=== PATIENT | male | born 1995 | race Two or more races ===

== ENCOUNTER 2016-09-12 06:09 | Emergency (ER) | payer OTHER ==
[2016-09-12 07:02] VITALS: BP 116/77; PULSE 71; TEMP 97.4; BMI 22.4
[2016-09-12] MEDS ORDERED: ACETAMINOPHEN 325 MG TABLET (FP) PO ONE (07:41)
--- NOTE | 2016-09-12 07:46 | PDOC ---
History of Present Illness - General Chief Complaint: Cold Symptoms Stated Complaint: COLD SYMPTOMS, HEADACHE Time Seen by Provider: 09/12/16 07:07 History Source: Patient Exam Limitations: No Limitations - History of Present Illness Initial Comments: 09/12/16 07:41 Patient is a 20 year old male with no past medical history who presents to ED for headache & congestion since Monday. Patient states he developed a runny nose accompanied by a mild-moderate diffuse frontal headache. Since then he has become congested and developed some mild pain while swallowing. He denies cough , fever, chills, nausea, vomiting, diarrhea, constipation. Denies chest pain, shortness of breath or abdominal pain. Modified CENTOR score of 2. Past History - Travel Traveled outside of the country in the last 30 days: No Close contact w/someone who was outside of country & ill: No - Past Medical History Allergies/Adverse Reactions: Allergies Allergy/AdvReac Type Severity Reaction Status Date / Time No Known Allergies Allergy Verified 09/12/16 08:00 Home Medications: Ambulatory Orders NK [No Known Home Medication] 06/05/16 Other medical history: denies - Surgical History Abdominal Surgery: No Appendectomy: No Cardiac Surgery: No Cholecystectomy: No Gastric Stapling: No GI Surgery: No Lung Surgery: No Neurologic Surgery: No Orthopedic Surgery: No - Family Disease History Comment:: 09/12/16 07:44 denies - Immunization History Immunization Up to Date: Yes - Psycho/Social/Smoking Cessation Hx Anxiety: No Suicidal Ideation: No Smoking Status: No Smoking History: Never smoked Hx Alcohol Use: No Drug/Substance Use Hx: No Substance Use Type: None Review of Systems - Review of Systems Able to Perform ROS?: Yes Is the patient limited French proficient: No Constitutional: No: Chills, Fever, Malaise, Night Sweats HEENTM: Yes: Nose Congestion, Throat Pain, Difficulty Swallowing. No: Blurred Vision, Ear Pain Respiratory: No: Cough, SOB with Exertion, Wheezing Cardiac (ROS): No: Chest Pain, Irregular Heart Rate, Lightheadedness ABD/GI: No: Constipated, Diarrhea, Nausea, Vomiting, Abdominal cramping Integumentary: No: Bruising, Change in Color, Erythema Neurological: Yes: Headache. No: Numbness, Paresthesia, Ataxia All Other Systems: Reviewed and Negative *Physical Exam - Vital Signs Last Vital Signs Temp Pulse Resp BP Pulse Ox 97.4 F L 71 18 116/77 99 09/12/16 06:47 09/12/16 06:47 09/12/16 06:47 09/12/16 06:47 09/12/16 06:47 - Physical Exam General Appearance: Yes: Nourished, Appropriately Dressed HEENT: positive: EOMI, [place], TMs Normal, Other (mildly erythematous pharynx without exudate; mild bilateral anterior cervical lymphadenopathy) Neck: positive: Trachea midline, Normal Thyroid, Supple Respiratory/Chest: positive: Lungs Clear, Normal Breath Sounds Cardiovascular: positive: Regular Rhythm, Regular Rate, S1, S2 Gastrointestinal/Abdominal: positive: Normal Bowel Sounds, Flat, Soft Musculoskeletal: positive: Normal Inspection Extremity: positive: Normal Capillary Refill, Normal Inspection, Normal Range of Motion Integumentary: positive: Normal Color, Dry, Warm Neurologic: 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 Will order rapid strep testing. Tylenol 650mg ordered. 09/12/16 08:44 Rapid strep POSITIVE. Explained antibiotic options with patient and he opts for IM Penicillin G 1.2million units. Shot given & patient instructed to f/u with PCP within 2-3 days for checkup. *DC/Admit/Observation/Transfer Diagnosis at time of Disposition: Acute streptococcal pharyngitis - Discharge Dispostion Disposition: HOME Condition at time of disposition: Improved Admit: No - Patient Instructions Additional Instructions: Followup with your regular primary care doctor within 2-3 days for a checkup. If sore throat worsens, headache becomes severe, or new symptoms arise, return to ED.
--- NOTE | 2016-09-12 07:54 | PDOC ---
Attending Attestation - Resident Resident Name: Shante,Azael - ED Attending Attestation I have performed the following: I have examined & evaluated the patient, The case was reviewed & discussed with the resident, I agree w/resident's findings & plan - HPI HPI: 09/12/16 07:51 20y M no pmhx presents for evaluation of mild frontal headache, nasal congestion and sore throat w/o and fever/chills, cough. On exam the pt is well appearing in no distress with mildly erythemadous posterior pharynx w/o exudates. will obtain rapid strep will give motrin for pain control 09/12/16 08:51 rapid strep postiive will tx with pcn and d/c with pmd fu - Physicial Exam PE: 09/13/16 09:31 see above - Medical Decision Making 09/13/16 09:31 see above
[2016-09-12] MEDS ORDERED: ACETAMINOPHEN 325 MG TABLET (FP) ONE (07:56)
[2016-09-12] MEDS ORDERED: PENICILLIN G BENZATHINE 1,200,000 UNIT/2 ML PFS IM ONE (08:43)
[2016-09-12] MEDS ORDERED: PENICILLIN G BENZATHINE 2,400,000 UNIT/4 ML PFS ONE (08:54)
== END 2016-09-12 09:05 | disposition home or self-care (01) ==
LOC: JER 06:09
DX: J02.0 Streptococcal pharyngitis (principal)
CPT/HCPCS: 87070; 87077; 87430; 99282-25

== ENCOUNTER 2016-10-19 10:21 | Emergency (ER) | payer OTHER ==
[2016-10-19 10:26] VITALS: BP 139/75; PULSE 95; TEMP 97.7; BMI 21.7
[2016-10-19] MEDS ORDERED: IBUPROFEN 600 MG TABLET (FP) PO ONE (10:37)
[2016-10-19] MEDS ORDERED: SILVER SULFADIAZINE 1% TOP CREAM 50 GM JAR TP ONE ×3 (11:21→12:04)
[2016-10-19] MEDS ORDERED: DIPHTH,PERTUSS(ACELL),TET 0.5 ML DISP.SYRIN IM ONE (11:53)
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
[2016-10-19] MEDS ORDERED: OXYCODONE/APAP 5/325MG COMBO TABLET ONE (12:12)
== END 2016-10-19 12:24 | disposition home or self-care (01) ==
LOC: JERFT 10:21
PROC: 2W2FX4Z Dressing of Left Hand using Bandage (ICD-10-PCS; principal; 2016-10-19)
PROC: 3E0234Z Introduction of Serum, Toxoid and Vaccine into Muscle, Percutaneous Approach (ICD-10-PCS; 2016-10-19)
DX: T23.202A Burn of second degree of left hand, unspecified site, initial encounter (principal); Y27.2XXA Contact with hot fluids, undetermined intent, initial encounter; Y93.G3 Activity, cooking and baking; Y92.9 Unspecified place or not applicable
CPT/HCPCS: 90715; 99281-25

== ENCOUNTER 2017-01-04 00:59 | Emergency (ER) | payer OTHER ==
[2017-01-04 01:50] VITALS: BP 127/64; PULSE 92; TEMP 97.1; BMI 22.4
[2017-01-04] MEDS ORDERED: IBUPROFEN 600 MG TABLET (FP) PO ONE ×2 (02:33→02:40)
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
== END 2017-01-04 02:46 | disposition home or self-care (01) ==
LOC: JER 00:59
DX: S13.4XXA Sprain of ligaments of cervical spine, initial encounter (principal); V43.62XA Car passenger injured in collision with other type car in traffic accident, initial encounter; Y92.414 Local residential or business street as the place of occurrence of the external cause; Y93.89 Activity, other specified; Y99.8 Other external cause status
CPT/HCPCS: 99283-25

== ENCOUNTER 2017-02-07 23:39 | Emergency (ER) | payer OTHER ==
[2017-02-08 01:13] VITALS: BP 110/75; PULSE 80; TEMP 98.3; BMI 21.7
--- NOTE | 2017-02-08 02:40 | PDOC ---
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 He states using Robitussin and Motrin with minimal relief. He denies any other complaints at this time. Timing/Duration: reports: other (3 days) Severity: reports: moderate Episode Description: See HPI Possible Cause: Yes: no prior episodes Modifying Factors: worse with: activity, albuterol inhaler, albuterol nebulizer , antibiotics, coughing, lying down, oxygen, rest, other Associated Symptoms: denies: denies symptoms, chest pain/soreness, cough, dizziness, earache, facial pain, fever/chills, headache, lightheadedness, muscle aches, nasal congestion, nasal drainage, shortness of breath, sinus infection, sore throat, wheezing, other Past History - Travel Traveled outside of the country in the last 30 days: No Close contact w/someone who was outside of country & ill: No - Past Medical History Allergies/Adverse Reactions: Allergies Allergy/AdvReac Type Severity Reaction Status Date / Time No Known Allergies Allergy Verified 02/08/17 01:00 Home Medications: Ambulatory Orders Albuterol Sulfate Inhaler - [Ventolin HFA Inhaler -] 1 - 2 inh PO Q4H PRN #1 inhaler 02/08/17 Amoxicillin/Potassium Clav [Augmentin 875-125 Tablet] 1 each PO Q12H #14 tablet 02/08/17 Methylprednisolone [Medrol Dose Pratik] 4 mg PO ASDIR #21 tablet 02/08/17 - Surgical History Abdominal Surgery: No Appendectomy: No Cardiac Surgery: No Cholecystectomy: No Gastric Stapling: No GI Surgery: No Lung Surgery: No Neurologic Surgery: No Orthopedic Surgery: No - Immunization History Immunization Up to Date: Yes - Psycho/Social/Smoking Cessation Hx Anxiety: No Suicidal Ideation: No Smoking Status: No Smoking History: Never smoked Have you smoked in the past 12 months: No Hx Alcohol Use: No Drug/Substance Use Hx: No Substance Use Type: None Respiratory Specific PMHX - Complaint Specific PMHX Angina: No Bronchitis: Yes Pneumonia: No Pulmonary Embolus: No TB (Tuberculosis): No Review of Systems - Review of Systems Able to Perform ROS?: Yes Is the patient limited Slovenian proficient: No Constitutional: Yes: Chills, Fever HEENTM: Yes: Throat Pain. No: Throat Swelling, Difficulty Swallowing Respiratory: Yes: Cough. No: Stridor, Wheezing Cardiac (ROS): No: Chest Pain, Lightheadedness, Palpitations, Syncope, Chest Tightness ABD/GI: No: Diarrhea, Nausea, Vomiting : No: Burning, Dysuria, Hematuria, Urgency Musculoskeletal: No: Back Pain All Other Systems: Reviewed and Negative *Physical Exam - Vital Signs Last Vital Signs Temp Pulse Resp BP Pulse Ox 98.3 F 80 18 110/75 100 02/08/17 01:00 02/08/17 01:00 02/08/17 01:00 02/08/17 01:00 02/08/17 01:00 - Physical Exam General Appearance: Yes: Nourished, Appropriately Dressed. No: Apparent Distress, Mild Distress, Moderate Distress, Severe Distress HEENT: positive: EOMI, [place], Normal ENT Inspection, Normal Voice, Symmetrical, TMs Normal, Pharynx Normal, Other (+ Post Nasal Drip). negative: Pharyngeal Erythema, Tonsillar Exudate, Tonsillar Erythema, TM Bulging, TM Dull, TM Erythema Neck: positive: Trachea midline, Normal Thyroid, Supple. negative: Lymphadenopathy (R), Lymphadenopathy (L) Respiratory/Chest: positive: Lungs Clear, Decreased Breath Sounds. negative: Chest Tender, Respiratory Distress, Accessory Muscle Use, Labored Respiration, Rapid RR, Crackles, Rales, Rhonchi, Stridor, Wheezing Cardiovascular: positive: Regular Rhythm, Regular Rate Musculoskeletal: positive: Normal Inspection. 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 intact, Fully Oriented, Alert, Normal Mood/ Affect, Normal Response, Motor Strength 5/5 ED Treatment Course - RADIOLOGY Radiology Studies Ordered: Category Date Time Status CHEST PA & LAT [RAD] Stat Radiology 02/08/17 01:15 Taken *DC/Admit/Observation/Transfer Diagnosis at time of Disposition: Bronchitis - Discharge Dispostion Disposition: HOME Condition at time of disposition: Stable Admit: No - Prescriptions Prescriptions: Amoxicillin/Potassium Clav [Augmentin 875-125 Tablet] 1 each PO Q12H #14 tablet Methylprednisolone [Medrol Dose Pratik] 4 mg PO ASDIR #21 tablet Albuterol Sulfate Inhaler - [Ventolin HFA Inhaler -] 1 - 2 inh PO Q4H PRN #1 inhaler PRN Reason: Trouble Breathing - Patient Instructions Printed Discharge Instructions: DI for Acute Bronchitis Additional Instructions: Take medications as prescribed. Follow up with your primary care provider. Return if symptoms worsen or any concerns for further evaluation. Print Language: BELARUSIAN - Post Discharge Activity Work/School Note: Back to Work
[2017-02-08] MEDS ORDERED: predniSONE 20 MG TABLET (UD) PO ONE (02:41)
[2017-02-08] MEDS ORDERED: AMOX TR/POT CLAV 875MG/125MG TABLETS (FP) PO ONE (02:41)
[2017-02-08] MEDS ORDERED: IBUPROFEN 100 MG/5 ML UNIT DOSE CUPS PO ONE (02:43)
[2017-02-08] MEDS ORDERED: AMOX TR/POT CLAV 875MG/125MG TABLETS (FP) ONE (02:58)
[2017-02-08] MEDS ORDERED: predniSONE 20 MG TABLET (UD) ONE (02:58)
[2017-02-08] MEDS ORDERED: IBUPROFEN 600 MG TABLET (FP) PO ONE (02:59)
== END 2017-02-08 03:23 | disposition home or self-care (01) ==
LOC: JER 23:39
DX: J20.9 Acute bronchitis, unspecified (principal)
CPT/HCPCS: 71020-TC; 99281-25